=== PATIENT | female | born 1975 | race Caucasian/White ===

== ENCOUNTER 2018-02-04 23:02 | Inpatient (IN) | payer MEDICAID ==
[~2018-02-04] VITALS: Ht 160 cm; Wt 70.3 kg
[2018-02-04 23:23] VITALS: Ht 160 cm; Wt 70.3 kg
[2018-02-05] VITALS (7 sets, daily range): BP systolic 90–104; BP diastolic 42–64
[2018-02-05 00:40] LABS: BASOPHIL % 0.3 % (0-2); PLATELET COUNT 295 x10^3mcL (130-400)
[2018-02-05 00:41] LABS: RED CELL DISTRIBUTION WIDTH 14.7 % (11.5-14.5)
[2018-02-05 00:49] LABS: CARBON DIOXIDE 22.2 mmol/L (21-32); CHLORIDE SERUM 101 mmol/L (98-107); CREATININE SERUM 0.7 mg/dL (0.6-1.0); GFR1 > 60 mL/min; GLUCOSE SERUM 120 mg/dL (74-106); POTASSIUM SERUM 3.5 mmol/L (3.5-5.1); SODIUM SERUM 138 mmol/L (136-145)
[2018-02-05 00:59] LABS: FREE T4 1.01 ng/dL (0.76-1.46); FREE THYROXINE INDEX 2.6 ug/dL (1.4-4.5); T4(THYROXINE) 8.8 ug/dL (4.7-13.3)
[2018-02-05 01:02] LABS: ALBUMIN 3.5 g/dL (3.4-5.0); ALKALINE PHOSPHATASE 69 U/L (46-116); ALT/SGPT 21 U/L (14-59); AST/SGOT 16 U/L (15-37); BILIRUBIN TOTAL 0.3 mg/dL (0.20-1.00); C REACTIVE PROTEIN 3.8 mg/dL (<=0.9); LIPASE 105 IU/L (73-393); TOTAL PROTEIN, SERUM 6.6 g/dL (6.4-8.2)
[2018-02-05 01:19] LABS: T3 TOTAL 1.07 ng/mL
[2018-02-05 01:25] LABS: CK-MB 1.2 ng/mL (0-3.6)
[2018-02-05 01:29] LABS: microscopic required? YES; urine erythrocyte TRACE (NEGATIVE)
[2018-02-05 01:49] LABS: ERYTHROCYTE SED RATE 26 mm/hr (0-20)
[2018-02-05 02:37] LABS: BASOPHIL % 0.4 % (0-2); PLATELET COUNT 251 x10^3mcL (130-400); RED CELL DISTRIBUTION WIDTH 13.5 % (11.5-14.5)
[2018-02-05 05:04] LABS: CHOLESTEROL/HDL RATIO 3.5; MAGNESIUM 1.9 mg/dL (1.8-2.4); PHOSPHOROUS 2.8 mg/dL (2.5-4.9)
[2018-02-05 10:06] LABS: AMPHETAMINE QUAL UR NONE DETECTED (NEG <=1000)
[2018-02-06 06:28] LABS: CALCIUM 8.2 mg/dL (8.5-10.1); CARBON DIOXIDE 26.4 mmol/L (21-32); CHLORIDE SERUM 108 mmol/L (98-107); CREATININE SERUM 0.6 mg/dL (0.6-1.0); GFR1 > 60 mL/min; GLUCOSE SERUM 108 mg/dL (74-106); POTASSIUM SERUM 3.6 mmol/L (3.5-5.1); SODIUM SERUM 141 mmol/L (136-145)
[2018-02-06 06:29] VITALS: BP 87/43
[2018-02-06 06:39] LABS: BASOPHIL % 0.3 % (0-2); PLATELET COUNT 236 x10^3mcL (130-400)
[2018-02-06] MEDS ORDERED: TYL325 PO (09:36)
[2018-02-06 09:43] VITALS: BP 102/58
[2018-02-06 11:52] VITALS: BP 102/58
== END 2018-02-06 16:32 | disposition home or self-care (01) | DRG 545 ==
LOC: ED 23:02 → DU 02-05 01:01 → MU 02-05 01:01 → DU 02-05 06:10 → MU 02-05 07:33
PROVIDERS: Family Medicine; Obstetrics & Gynecology; Specialist
PROC: 0UB00ZZ Excision of Right Ovary, Open Approach (ICD-10-PCS; principal; 2018-02-05 04:00)
DX: O00.01 Abdominal pregnancy with intrauterine pregnancy (principal); E72.20 Disorder of urea cycle metabolism, unspecified; R31.9 Hematuria, unspecified; Z90.49 Acquired absence of other specified parts of digestive tract; E78.5 Hyperlipidemia, unspecified
CPT/HCPCS: 83880; 84439; 90658; 94150; C1758; J0330; J0690; J0780; J1885; J2175; J2250; J2704; J3010; J3490; J7030; J7120; Q0092